=== PATIENT | male | born 1990 | race Asian ===

== ENCOUNTER 2021-01-31 09:04 | Outpatient (CLI) | payer OTHER ==
[2021-01-31 18:01] LABS: SARS-CoV-2 PCR by NAA Not Detected (NotDetected)
== END 2021-01-31 09:05 | disposition home or self-care (01) ==
LOC: LABBT 09:04
PROVIDERS: ATTEND Otolaryngology Plastic Surgery within the Head & Neck
DX: Z01.812 Encounter for preprocedural laboratory examination (principal); J30.9 Allergic rhinitis, unspecified; J34.2 Deviated nasal septum; J34.3 Hypertrophy of nasal turbinates; G47.30 Sleep apnea, unspecified; R06.83 Snoring; J35.01 Chronic tonsillitis; J35.3 Hypertrophy of tonsils with hypertrophy of adenoids; Z99.89 Dependence on other enabling machines and devices; Z20.822 Contact with and (suspected) exposure to COVID-19
CPT/HCPCS: U0003; U0005

== ENCOUNTER 2021-02-05 | Day surgery (SDC) | payer OTHER | END 2021-02-05 14:16 | disposition home or self-care (01) | PROC: 0CTPXZZ Resection of Tonsils, External Approach (ICD-10-PCS; principal; 2021-02-05) | PROC: 09TL0ZZ Resection of Nasal Turbinate, Open Approach (ICD-10-PCS; principal; 2021-02-05) | PROC: 09SM0ZZ Reposition Nasal Septum, Open Approach (ICD-10-PCS; principal; 2021-02-05) | PROC: 0CTQXZZ Resection of Adenoids, External Approach (ICD-10-PCS; principal; 2021-02-05) ==

== ENCOUNTER 2021-05-19 15:39 | Outpatient (CLI) | payer OTHER | END 2021-05-19 15:40 | disposition home or self-care (01) | LOC: BICRAD 15:39 | PROVIDERS: ATTEND Physician Assistant | DX: S89.92XA Unspecified injury of left lower leg, initial encounter (principal) ==